=== PATIENT | female | born 1950 | race Caucasian/White ===

== ENCOUNTER → 2020-06-21 | Outpatient (CLI) | payer OTHER ==
[~2020-06-21] MED LIST: ASA81BEC PO; ATENOLOL 50MG T50 M1 PO; CENTRUM SILVER1 EAC5 PO; CRESTOR40 MG PO; FISH OIL 1,2001 EAC4 PO; FUROSEMIDE 20 M20 MG PO; GARLIC OIL1000 MG PO; HYDROXYCHLOROQ200 M1 PO; KLOR-CON 10 ER10 MEQ PO; NORVASC10 MG PO; PRILOSEC OTC20 MG PO; PRINIVIL40 MG PO; SUPER B-50 COM1 EACH PO
[2020-06-21 12:58] LABS: HEMATOCRIT 38.8 % (37.0-47.0); HEMOGLOBIN 13.1 gm/dL (12.0-15.0); MCH 31.5 pg (26.0-34.0); MCHC 33.8 g/dL (28.0-37.0); MCV 93.4 fL (80.0-100.0); RBC 4.16 mil/uL (4.20-5.00); RDW 13.1 % (10.5-14.5); WBC 9.4 thou/uL (4.0-11.0)
[2020-06-21 13:03] LABS: URINE BILIRUBIN NEGATIVE (Negative); URINE BLOOD 2+ (Negative); URINE CLARITY CLEAR; URINE COLOR YELLOW; URINE GLUCOSE-RANDOM* NEGATIVE (Negative); URINE KETONES NEGATIVE (Negative); URINE LEUKOCYTES-REFLEX NEGATIVE (Negative); URINE NITRITE-REFLEX NEGATIVE (Negative); URINE PROTEIN (DIPSTICK) NEGATIVE (Negative); URINE UROBILINOGEN 0.2 E.U./dl (0.2-1.0)
[2020-06-21 13:14] LABS: INR 1.01
[2020-06-21 13:18] LABS: ALBUMIN 3.8 g/dL (3.4-5.0); CALCIUM 9.8 mg/dL (8.5-10.1); POTASSIUM 4.3 mmol/L (3.5-5.1)
[2020-06-21 13:22] LABS: CRYSTALS None Seen /LPF (None Seen); HYALINE CASTS 0-3 Few /LPF (None Seen); SQUAMOUS 0-3 Few /LPF (0-3)
[2020-06-21 13:26] LABS: RENAL EPITHELIAL CELLS 0-3 Few /LPF (None Seen); URINE RBC 3-10 Few /HPF (0-2)
[2020-06-21 13:27] LABS: BACTERIA-REFLEX 1-9 Few /HPF (None Seen); URINE WBC-REFLEX 0-5 Rare /HPF (0-5)
--- NOTE | 2020-06-21 17:37 | EKG ---
[address] [address] ELECTROCARDIOGRAM REPORT Name: ANJANA MARRERO Room #: REG [facility]#: [id number] Admission: 06/21/20 Attend Phys: Johnathan Grant MD Discharge: Date of : 48 Report #: [id number] [facility] Test Date: 2020-06-21 Test Time: 12:55:21 Pat Name: ANJANA MARRERO Department: Room: Gender: F Senior Administrative Associate: TRISTAN : 1950 Requested By: Johnathan Grant Order Number: [id number] MD: Tod Morales Measurements Intervals Gunpowder Rate: 63 P: 45 HI: 149 QRS: 10 QRSD: 78 T: 16 QT: 420 QTc: 430 Interpretive Statements Sinus rhythm No significant abnormality No previous ECG available for comparison Electronically Signed On 06-21-2020 17:37:36 CDT by Tod Morales [email or web address] <ELECTRONICALLY SIGNED> By: Tod Morales MD, [facility] 06/21/20 1737 1255 1255 Tod Morales MD, FACC /EPI
== END ==
LOC: LAB 08:25
PROVIDERS: ATTEND Orthopaedic Surgery
DX: Z01.812 Encounter for preprocedural laboratory examination (principal); Z20.822 Contact with and (suspected) exposure to COVID-19; I49.9 Cardiac arrhythmia, unspecified

== ENCOUNTER 2020-06-26 12:31 | Observation (INO) | payer OTHER ==
[2020-06-26] VITALS (7 sets, daily range): BP systolic 111–123; BP diastolic 57–73
[~2020-06-26] VITALS: Ht 157.5 cm; Wt 61.2 kg
--- NOTE | 2020-06-26 18:14 | NUR ---
ASSUMED PT CARE AT 1645 FROM PACU. PT IS ALERT & ORIENTED X4. PT HAD L TOTAL HIP REPLACEMENT TODAY. PT HAS TEDS, SCD, LULU DRESSING, AND ICE PACK. PT HAS IV SITE ON R FA 20 GAUGE. SENT TO HOME MEDS TO PHARMACY. PT ON THE BED, BED ON THE LOWEST POSITION, SIDE RAILS UP, CALL LIGHT WITHIN REACH. WILL CONTINUE TO MONITOR PT. FOLLOW POC.
--- NOTE | 2020-06-27 01:54 | NUR ---
PT WAS OBSERVED LYING ON HR BED WATCHING TV AT SHIFT CHANGE.DRSG TO HER L HIP C/D/I.VÍCTOR MEDS GIVEN,PT FABIOLA WELL.PER REPORT,PT HAS HOME MED STORED IN THE PHARMACY BY AM NURSE.PT CONCERNED ABOUT NOT HAVING THE MEDICATIONS ON HER.PT NOTIFIED THAT SHE WILL BE PICKING UP THE MED FROM PHARMACY AT [place].PT RESTING ON HER BED AT THIS TIME.CALL LIGHT WITHIN REACH.
[2020-06-27 03:31] VITALS: BP 100/57
[2020-06-27 04:18] LABS: HEMATOCRIT 33.3 % (37.0-47.0); HEMOGLOBIN 11.4 gm/dL (12.0-15.0); MCH 31.6 pg (26.0-34.0); MCHC 34.3 g/dL (28.0-37.0); MCV 92.1 fL (80.0-100.0); RBC 3.61 mil/uL (4.20-5.00); RDW 12.9 % (10.5-14.5); WBC 12.8 thou/uL (4.0-11.0)
[2020-06-27 07:27] VITALS: BP 98/66
--- NOTE | 2020-06-27 08:56 | NUR ---
ASSESSMENT: CM REVIEWED CHART AND SPOKE WITH PATIENT. PT IS ALERT AND ORIENTED X4. PT IS S/P LEFT TRESSA. PT REPORTS LIVING IN A HOUSE ALONE BUT IS GOING TO HAVE A FRIEND STAYING WITH HER FOR A FEW WEEKS. PT REPORTS HAVING TWO STEPS TO GET INTO THE HOME AND NO STEPS SHE HAS TO USE ONCE INSIDE. PT REPORTS SHE DOES HAVE A BASEMENT BUT DOES NOT HAVE TO GO DOWN THERE. PT REPORTS HAVING A CANE AT HOME TO ASSIST WITH AMBULATION BUT DOES NOT HAVE A WALKER. CM DISCUSSED THERAPY WILL WORK WITH PATIENT BUT SHE WILL LIKELY NEED A WALKER AT DISCHARGE. PT REPORTS NO PREFERENCE OF [facility]. CM NOTIFIED PROVIDER [facility]US WHO REPORTS THEY CAN DELIVER WALKER TO PT AT TIME OF DISCHARGE. PT HAS OUTPATIENT THERAPY ARRANGED IN [place], [place] WHERE SHE LIVES TO BEGIN ON FRIDAY. PT REPORTS SHE WILL LIKELY HAVE NO NEEDS FROM CM OTHER THEN THE WALKER. CM WILL CONTINUE TO FOLLOW TO ASSIST NEEDED.
--- NOTE | 2020-06-27 10:29 | NUR ---
Assumed pt care at 7am.Assessment completed.vss.pt in bed very pleasant and cooperative with staff.Assisted with tray setup at breakfast.Am meds given with pain med prior to visit by therapist.Pt ambulated in hallways with walker and therapist assist.Pt was cleared by therapist to go home.Kalin Belt Loop Maker here to see later this am.Dc order noted.Pt will be dc home today.Will continue to monitor.
[2020-06-27 11:05] VITALS: BP 98/66
[2020-06-27 11:14] VITALS: BP 98/66
--- NOTE | 2020-07-05 12:32 | O ---
[facility] [place] [address] OPERATIVE REPORT Name: ANJANA MARRERO Room #: 440-P [facility] Carissa Allison#: [id number] Admission: 06/26/20 Attend Phys: Johnathan Grant MD Discharge: 06/27/20 Date of : 48 Report #: [id number] THIS REPORT FOR: cc: [facility] Physician not on staff Johnathan Grant MD ~ DOC #: [id number] Johnathan Grant MD DATE OF SERVICE: 06/26/2020 PREOPERATIVE DIAGNOSIS: Left hip osteoarthritis. POSTOPERATIVE DIAGNOSIS: Left hip osteoarthritis. PROCEDURE: Left total hip arthroplasty. SURGEON: Johnathan Grant MD. MANUFACTURING SR ENGINEER: Shante Gagnon PA-C INDICATION FOR MANUFACTURING SR ENGINEER: Throughout the case, extensive retraction, manipulation of the hip was required including dislocation and reduction. This was afforded to me by my assistant facility manager. ANESTHESIA: LMA. IMPLANTS: [employer] size 50 R3 acetabular cup with one acetabular screw, size 11 Synergy high offset cemented stem, a size 32+4 cobalt chrome head. ESTIMATED BLOOD LOSS: 50 mL COMPLICATIONS: None. SPECIMENS: None. CONDITION UPON LEAVING OPERATING ROOM: Stable. INDICATIONS FOR PROCEDURE: The patient is a 70-year-old female with severe left hip osteoarthritis. She failed conservative measures for this and after discussion with her, she elected for left total hip arthroplasty. DESCRIPTION OF PROCEDURE: Risks, benefits, alternatives, complications were discussed in detail with the patient including but not limited to risk of anesthesia; risk of damage to nerves, arteries, blood vessels; risk for infection, bleeding; risk for continued hip pain, leg length discrepancy, instability and need for reoperation. Informed consent was obtained from the [address] [address] OPERATIVE REPORT Name: ANJANA MARRERO Room #: 440-P [facility] Carissa Allison#: [id number] Admission: 06/26/20 Attend Phys: Johnathan Grant MD Discharge: 06/27/20 Date of : 48 Report #: [id number] patient. The left hip was appropriately marked in the preoperative holding area. IV Ancef was given for preoperative antibiotics. She was brought to the operating room and placed in supine position on the operating table. LMA anesthesia was induced without complications. She was then placed in the right lateral decubitus position with the left hip uppermost. Left hip and lower extremity were prepped and draped in normal sterile fashion. Timeout was performed properly identifying the patient and procedure as well as instrumentation and implants. All in the operating room in agreement. Standard posterior approach to the hip was made with a 10 blade through the skin. Dissection was taken down to fascia with Bovie cautery. Chery elevator was used to clean out the fascia. A fresh 10 blade was used to make a fascial incision. This was taken proximally and distally with curved Tobar scissor. Charnley retractor was placed. Trochanteric bursa was taken down with Bovie cautery. Short external rotators were taken down with Bovie cautery. Capsulotomy was made and capsule ends were tagged for later repair. Hip was dislocated. There was extensive osteoarthritic change in the femoral head. Femoral neck cut was made 1 cm proximal to the lesser trochanter based on preoperative templating and the femoral head was removed. Deep acetabular retractors were placed. Labrum was removed sharply. Pulvinar was removed with Bovie cautery. Acetabulum was then sequentially reamed up to a size 50, at which point there was excellent bleeding cancellous bone. A size 49 trial cup was placed and found to have a good fit. A final size 50 R3 acetabular cup was placed and seated. One acetabular screw was placed for backup fixation of polyethylene liner ____ 32 head was placed. Attention was turned to the femur. This was reamed and broached to a size 11, at which point a size 11 broach was stable, was trialed with a high offset neck and a 32+0 head. Hip was reduced, taken through range of motion, found to be stable, found to be somewhat short on the left compared to the right. It was felt we could make ____ with a final implant. Retractor was removed and then a final size 11 Synergy cemented stem was cemented in place using standard cementation techniques. After the cement cured, this was trialed with a 32+4 head. Hip was reduced, taken through range of motion, found to be stable, found to have equal leg length. Hip was dislocated one last time. A final size 32+4 cobalt chrome head was placed. Hip was reduced, taken through range of motion, found to be stable, found to have equal leg length. Wound was thoroughly irrigated with normal saline. A periarticular injection consisting of morphine, ropivacaine, epinephrine, Toradol was placed around the hip joint capsule. A gram of vancomycin was placed deep in the joint. Thus, the capsule and piriformis were repaired with 0 FiberWire. Fascia was closed with 0 Vicryl. Skin was closed with 2-0 Vicryl, 3-0 Monocryl. Dermabond and a LULU dressing was applied. The patient tolerated this procedure well and went to the recovery room under care of anesthesia postoperatively. MD YUVAL Mae/STEPHANIE/ARUNA [address] [place] [address] OPERATIVE REPORT Name: ANJANA MARRERO Room #: 440-P [facility] Carissa MJaneRJane#: [id number] Admission: 06/26/20 Attend Phys: Johnathan Grant MD Discharge: 06/27/20 Date of : 48 Report #: [id number] <ELECTRONICALLY SIGNED> By: Johnathan Grant MD 07/05/20 1232 [id number] Johnathan Grant MD /nt
== END 2020-06-27 12:32 | disposition home or self-care (01) ==
LOC: OR 12:31 → 4S 16:28 → OR 16:29 → 4S 16:29
PROVIDERS: ADMIT Orthopaedic Surgery; ATTEND Orthopaedic Surgery
DX: M16.12 Unilateral primary osteoarthritis, left hip (principal); Z79.899 Other long term (current) drug therapy
CPT/HCPCS: 50010; 50101; 50382; 50414; 51057; 51130; 51225; 51226; 53000; 53078; 53367; 54118; 56460; 56524; 56528; 56530; 57095; 57103; 62110; 62900; 70005